=== PATIENT | female | born 1965 | race Caucasian/White ===

== ENCOUNTER 2019-04-16 17:20 | Emergency (ER) | payer SELFPAY ==
--- OUTSIDE RECORDS SUMMARY | 2019-04-16 17:33 | XMS REPORT | Summary of Care ---
:1965 Author Organization [facility] Address [address] [address] Care Team Providers Name Role Phone Martha Avila MD Primary Care Provider Reason for Visit Reason Comments Follow Up Hypothyroidism post albation. Hx of Graves Encounter Details Date Type Department Care Team Description 04/11/2019 Office Visit Nena Moore Postablative hypothyroidism (Primary Dx); Endocrinology-MARTA Kelly Graves disease; [place] [address] Myalgia; [address] [place] [address] Hypovitaminosis D [place] [address] [phone] Allergies Active Allergy Reactions Severity Noted Date Comments Chocolate Swelling 04/11/2019 Swelling of the mouth with open sores Latex Dermatologic Reaction Medium 04/11/2019 Peanuts Dermatologic Reaction 08/13/2015 Pruritis - only with peanut butter (peanuts are ok) Penicillins Anaphylaxis 08/13/2015 Shellfish Allergy Dermatologic Reaction 08/13/2015 Pruritis and anxiety documented as of this encounter (statuses as of 04/11/2019) Medications Medication Sig Dispensed Refills Start Date End Date Status Miconazole Nitrate by Apply 0 Active (LOTRIMIN AF) 2 % Apply externally route. externally Aerosol Lactobacillus Take by mouth 0 Active Rhamnosus, GG, DAILY. (CULTURELLE PO) cyanocobalamin 500 MCG Take 500 mcg by 0 Active Oral Tab mouth DAILY. Tetrahydrozoline HCl Place to the 0 Active (VISINE) 0.05 % external eye Ophthalmic Solution TWICE DAILY. Aloe-Sodium Chloride [place] in nose 0 Active (AYR SALINE NASAL GEL NEEDED. NA) Multiple Vitamin Take by mouth 0 Active (MULTI-VITAMIN DAILY) DAILY. Oral Tab Calcium Carbonate-Vit Take by mouth. 0 Active D-Min (CALCIUM 600+D PLUS MINERALS PO) meloxicam (MOBIC) 15 MG Take 1 Tab by 30 Tab 1 06/11/2018 Active Oral Tab mouth DAILY. cyclobenzaprine Take 2 Tabs by 20 Tab 0 06/11/2018 Active (FLEXERIL) 5 MG Oral mouth EVERY Tab BEDTIME NEEDED (back spasm). diclofenac (VOLTAREN) 1 2 g by Topical 100 g 2 08/01/2018 Active % Transdermal Gel route FOUR TIMES DAILY. ondansetron (ZOFRAN Take 1 Tab by 30 Tab 0 02/18/2019 Active ODT) 4 MG Oral TABLET mouth EVERY SIX DISPERSIBLEIndications: HOURS NEEDED Viral gastroenteritis (Nausea). TIROSINT 100 MCG Oral Take 1 Cap by 30 Cap 5 03/11/2019 Active CapIndications: mouth DAILY 0700 Postablative on Empty Stomach. hypothyroidism 30 min before breakfast Selenium 200 MCG Oral Take 1 Tab by 0 Active Tab mouth DAILY. documented as of this encounter (statuses as of 04/11/2019) Active Problems Problem Noted Date Chronic bilateral low back pain with bilateral sciatica 07/06/2018 Greater trochanteric bursitis of both hips 07/06/2018 Primary osteoarthritis involving multiple joints 07/06/2018 DDD (degenerative disc disease), cervical 06/18/2018 Positive YAS (antinuclear antibody) 03/22/2018 Presence of anti-[place] DNA antibodies 03/22/2018 Keratitis sicca, bilateral 04/05/2017 Tobacco use 11/23/2016 History of gastritis 06/24/2016 Graves disease 08/13/2015 Postablative hypothyroidism 08/13/2015 Overview: 2004 Thyroid disease documented as of this encounter (statuses as of 04/11/2019) Resolved Problems Problem Noted Date Resolved Date Epicondylitis, lateral 07/06/2018 08/01/2018 Palpitations 11/14/2016 08/01/2018 Chest pressure 11/14/2016 08/01/2018 Gastroesophageal reflux disease without esophagitis 06/24/2016 06/24/2016 documented as of this encounter (statuses as of 04/11/2019) Social History Tobacco Use Types Packs/Day Years Used Date Former Smoker Cigarettes 0.5 20 Quit: 08/18/2018 Smokeless Tobacco: Never Used Alcohol Use Drinks/Week oz/Week Comments No Social Isolation Answer Date Recorded In a typical week, how many times do you talk on the phone Not asked with family, friends, or neighbors? How often do you get together with friends or relatives? Not asked How often do you attend jainism or caodaism services? Not asked Do you belong to any clubs or organizations such as jainism Not asked groups, unions, fraternal or athletic groups, or school groups? How often do you attend meetings of the clubs or Not asked organizations you belong to? Are you now , , , , never 06/13/2018 or living with a partner? Sex Assigned at Date Recorded Not on file documented as of this encounter Last Filed Vital Signs Vital Sign Reading Time Taken Comments Blood Pressure 110/76 04/11/2019 9:32 AM EST Pulse 72 04/11/2019 9:32 AM EST Temperature - - Respiratory Rate - - Oxygen Saturation 98% 04/11/2019 9:32 AM EST Inhaled Oxygen Concentration - - Weight 76.2 kg (168 lb) 04/11/2019 9:32 AM EST Height - - Body Mass Index 27.96 02/18/2019 10:46 AM EST documented in this encounter Patient Instructions Patient InstructionsNena Singleton CRNP - 04/11/2019 9:30 AM ESTFasting labs 8 am Continue Tirosint FOLLOW UP 6 mosElectronically signed by Nena Singleton CRNP at 2019 10:12 AM EST documented in this encounter Progress Notes Nena Singleton CRNP - 04/11/2019 9:30 AM EST PATIENT: Janene Morris : 1965 DATE OF SERVICE: 04/11/2019 REFERRING PROVIDER: Nena Singleton PRIMARY CARE PROVIDER: Martha Avila CHIEF COMPLAINT: Chief Complaint Patient presents with ? Follow Up ? Hypothyroidism post albation. Hx of Graves HISTORY OF PRESENT ILLNESS: Janene Morris is a 53-y.o. female who presents for FOLLOW UP of postablative hypothyroidism r/t Graves' disease (dx 2004) S/P I-131 PEREZ ablation in 2004 at [facility]. Currently managed on Tirosint 100 mcg daily. Recent thyroid function tests are normal with TSH 1.84 and Free T4 of 1.3. Main complaints today are chronic fatigue, lower extremity pain - thigh pain, lower leg pain, and joint pain. + YAS titer and was evaluated by Rheumatology. Hx GERD. Current allergies , medications and history have been reviewed. History was obtained from the patient who appears to be reliable. Complaints of: Constipation and diarrhea: no Heat or cold intolerance: Feels warm often Palpitations and tremors: noUnintentional weight loss or weight gain: reports 10 lb wt gain in past 6 mos Changes in skin, hair, or nails: dry itchy skin Fatigue: +++ Dry, gritty sensation in eyes: + dry eyes. Uses eye gtts. Denies blurred or double vision LMP: has no monthly menses while on IUD Menses: Has 3rd consecutive Mirena IUD in place Mood changes: no Smoking: quit smoking in July 2018 Supplements: Selenium, B12, One a day MVI Other: reports dizziness with position change Family history of thyroid cancer: No Radiation exposure to head or neck: No Growth in neck size, lumps, bumps: No Dysphagia/dysphonia/dyspnea: no CURRENT MEDICATIONS Current Outpatient Medications: ? Aloe-Sodium Chloride (AYR SALINE NASAL GEL NA), [place] in nose NEEDED., Disp: , Rfl: ? Calcium Carbonate-Vit D-Min (CALCIUM 600+D PLUS MINERALS PO), Take by mouth., Disp: , Rfl: ? cyanocobalamin 500 MCG Oral Tab, Take 500 mcg by mouth DAILY., Disp: , Rfl: ? cyclobenzaprine (FLEXERIL) 5 MG Oral Tab, Take 2 Tabs by mouth EVERY BEDTIME NEEDED (back spasm)., Disp: 20 Tab, Rfl: 0 ? diclofenac (VOLTAREN) 1 % Transdermal Gel, 2 g by Topical route FOUR TIMES DAILY., Disp: 100 g, Rfl: 2 ? Lactobacillus Rhamnosus, GG, (CULTURELLE PO), Take by mouth DAILY., Disp: , Rfl: ? meloxicam (MOBIC) 15 MG Oral Tab, Take 1 Tab by mouth DAILY., Disp: 30 Tab, Rfl: 1 ? Miconazole Nitrate (LOTRIMIN AF) 2 % Apply externally Aerosol, by Apply externally route., Disp: , Rfl: ? Multiple Vitamin (MULTI-VITAMIN DAILY) Oral Tab, Take by mouth DAILY. , Disp: , Rfl: ? ondansetron (ZOFRAN ODT) 4 MG Oral TABLET DISPERSIBLE, Take 1 Tab by mouth EVERY SIX HOURS NEEDED (Nausea)., Disp: 30 Tab, Rfl: 0 ? Selenium 200 MCG Oral Tab, Take 1 Tab by mouth DAILY., Disp: , Rfl: ? Tetrahydrozoline HCl (VISINE) 0.05 % Ophthalmic Solution, Place to the external eye TWICE DAILY., Disp: , Rfl: ? TIROSINT 100 MCG Oral Cap, Take 1 Cap by mouth DAILY 0700 on Empty Stomach. 30 min before breakfast, Disp: 30 Cap, Rfl: 5 ALLERGIES Allergies Allergen Reactions ? Latex Dermatologic Reaction ? Chocolate Swelling Swelling of the mouth with open sores ? Peanut Butter [Peanuts] Dermatologic Reaction Pruritis - only with peanut butter (peanuts are ok) ? Penicillins Anaphylaxis ? Shellfish Allergy Dermatologic Reaction Pruritis and anxiety PAST MEDICAL HISTORY Graves' disease 2004 Postablative hypothyroidism 2004 PAST SURGICAL HISTORY Cholecystectomy 1999 FAMILY HISTORY SOCIAL HISTORY Social History Social History Main Topics ? Smoking status: Current Every Day Smoker Packs/day: 1.00 Years: 20.00 Types: Cigarettes ? Smokeless tobacco: None ? Alcohol use No ? Drug use: No ? Sexual activity: Not Asked Other Topics Concern ? None Social History Narrative ? Works second shift REVIEW OF SYSTEMS: A comprehensive review of systems was negative except for as noted in the history of present illness/subjective. PHYSICAL EXAM: BP 110/76 (BP Location: Right arm, Patient Position: Sitting) Pulse 72 Wt 168 lb (76.2 kg) SpO2 98% BMI 27.96 kg/m2 GENERAL: Appears well, in NAD SKIN: Warm, well perfused, non-diaphoretic EYES: EOMI bilaterally, peripheral medrano full to confrontation. Right eye appears prominent NECK: thyroid palpable with no nodules or masses, + bruit LYMPH: No palpable LAD in the supraclavicular, submandibular, submental, anterior cervical, posterior cervical, supraclavicular, or occipital chains LUNGS: clear to auscultation bilaterally. HEART: regular rhythm. ABDOMEN: soft, nontender. EXTREMITIES: No cyanosis, or edema, + clubbing of fingernails bilat. NEUROLOGICAL: +2 DTRs diffusely B, no briskness or delayed relaxation. No tremor with outstretched hand. Gait appears stiff and slow. LAB RESULTS: Results for MAKSIM JANENE L ( ) as of 04/11/2019 09:51 Ref. Range 03/12/2019 11:23 TSH Latest Ref Range: 0.47 - 4.68 uIu/ml 1.84 Free T4 Latest Ref Range: 0.8 - 2.2 NG/DL 1.3 ASSESSMENT/PLAN: 1. Postablative hypothyroidism - s/p I-131 PEREZ in 2004 ([facility]). Clinically reports fatigue, muscle pain in legs, and intermittent joint pain. Thyroid function tests are wnL. Managed on Tirosint 100 mcg. No changes. Labs 1 week before next visit. 2. Graves' disease - diagnosed in 2004. Denies vision change. Takes Selenium 200 mcg daily. Advised to FOLLOW UP with Ophthalmology annually and as needed for acute vision changes or eye complaints. Smoking cessation is strongly advised. 3. Myalgia - reports symmetric pain to bilateral thighs and deep aching pain to bilateral shins. Evaluate ESR, CRP, CK level, ACTH, Cortisol, CMP, Vit D, CBC 4. Hypovitaminosis D - check D level and make recommendations Patient agrees with plan of care Will write with results Follow up 6 months MARTA Galaviz 04/11/2019 09:51 Section of Endocrinology Electronically signed. documented in this encounter Plan of Treatment Date Type Specialty Care Team Description 05/20/2019 Office Visit Family Practice Alonso Peraza DO [address] [id number] 06/17/2019 Office Visit Family Practice Martha Avila MD [address] [address] 10/11/2019 Office Visit Endocrinology Nena Singleton CRNP [address] [facility] [place] [address] Name Type Priority Associated Diagnoses Order Schedule VITAMIN D 25 HYDROXY Lab Routine Hypovitaminosis D Expected: (DARIEL) 04/11/2019 (Approximate), Expires: 04/11/2020 FREE T4 Lab Routine Postablative Every 6 Months for hypothyroidism 2 Occurrences starting 04/11/2019 until 04/11/2020 THYROID STIMULATING HORMONE Lab Routine Postablative Every 6 Months for hypothyroidism 2 Occurrences starting 04/11/2019 until 04/11/2020 ADRENOCORTICOTROPIC HORMONE Lab Routine Myalgia Expected: 04/11/2019 (Approximate), Expires: 04/11/2020 CORTISOL AM SERUM Lab Routine Myalgia Expected: 04/11/2019 (Approximate), Expires: 04/11/2020 C-REACTIVE PROTEIN Lab Routine Myalgia Expected: 04/11/2019 (Approximate), Expires: 04/11/2020 SEDIMENTATION RATE Lab Routine Myalgia Expected: 04/11/2019 (Approximate), Expires: 04/11/2020 COMPREHENSIVE METABOLIC Lab Routine Myalgia Expected: PANEL 04/11/2019 (Approximate), Expires: 10/08/2019 URINALYSIS (LAB) WITH REFLEX Lab Routine Myalgia Expected: CULTURE 04/11/2019 (Approximate), Expires: 10/08/2019 CBC WITH DIFFERENTIAL Lab Routine Myalgia Expected: 04/11/2019 (Approximate), Expires: 10/08/2019 CREATINE KINASE Lab Routine Myalgia Expected: 04/11/2019 (Approximate), Expires: 04/11/2020 Health Maintenance Due Date Last Done Comments DTaP/Tdap/Td Vaccines (1 - 1976 Tdap) ZOSTER IMMUNIZATION SERIES 10/15/2015 (1 of 2) MAMMOGRAM (SCREENING) 12/14/2018 12/14/2017 DIABETES SCREENING 02/19/2020 02/18/2019, 02/18/2019, 10/08/2018, Additional history exists LIPID DISORDER SCREENING 06/24/2021 06/24/2016 PAP SMEAR 10/31/2021 10/31/2018 DEPRESSION SCREENING 02/18/2022 03/13/2018 Postponed from 03/13/2019 (Other) Colonoscopy 07/15/2024 07/15/2014 HEPATITIS A IMMUNIZATION Aged Out No longer eligible SERIES based on patient's age to complete this topic HPV IMMUNIZATION SERIES Aged Out No longer eligible based on patient's age to complete this topic MENINGOCOCCAL VACCINE IMM Aged Out No longer eligible based on patient's age to complete this topic PNEUMOCOCCAL 0-64 YRS Aged Out No longer eligible based on patient's age to complete this topic documented as of this encounter Results Not on filedocumented in this encounter Visit Diagnoses Diagnosis Postablative hypothyroidism Other postablative hypothyroidism Graves disease Toxic diffuse goiter without mention of thyrotoxic crisis or storm Myalgia Mylagia and myositis, unspecified Hypovitaminosis D Unspecified vitamin D deficiency documented in this encounter Insurance Payer Benefit Plan / Subscriber ID Effective Dates Phone Address Type Group [employer] COMMERCIAL [facility] [id number] 2010-Present [employer] documented as of this encounter
--- OUTSIDE RECORDS SUMMARY | 2019-04-16 17:33 | XMS REPORT | Summary of Care ---
:1965 Author Organization [facility] Address [address] [place] [address] Care Team Providers Name Role Phone Martha Avila MD Primary Care Provider Reason for Visit Reason Comments Nausea Headache Encounter Details Date Type Department Care Team Description 02/18/2019 Office Visit [facility] Alonso Peraza DO Functional diarrhea (Primary Dx); [address] Psychogenic vomiting with nausea; [address] [id number] [place] [address] Abdominal discomfort, generalized; [phone] Nausea Allergies Active Allergy Reactions Severity Noted Date Comments Peanuts Dermatologic Reaction 08/13/2015 Pruritis - only with peanut butter (peanuts are ok) Penicillins Anaphylaxis 08/13/2015 Shellfish Allergy Dermatologic Reaction 08/13/2015 Pruritis and anxiety documented as of this encounter (statuses as of 02/18/2019) Medications Medication Sig Dispensed Refills Start Date [...] eye Ophthalmic Solution TWICE DAILY. Aloe-Sodium Chloride [place] in nose 0 Active (AYR SALINE NASAL [...] % Transdermal Gel route FOUR TIMES DAILY. TIROSINT 100 MCG Oral Take 1 Cap by 30 Cap 5 10/03/2018 Active Cap mouth DAILY 0700 on Empty Stomach. 30 min before breakfast ondansetron (ZOFRAN Take 1 Tab by 30 Tab 0 02/18/2019 Active ODT) 4 MG Oral TABLET mouth EVERY SIX DISPERSIBLEIndications: HOURS NEEDED Nausea (Nausea). documented as of this encounter (statuses as of 02/18/2019) Active Problems Problem Noted Date Chronic bilateral low back pain with bilateral sciatica 07/06/2018 Greater trochanteric bursitis of both hips 07/06/2018 Primary osteoarthritis involving multiple joints 07/06/2018 DDD (degenerative disc disease), cervical 06/18/2018 Positive YAS (antinuclear antibody) 03/22/2018 Presence of anti-pala DNA antibodies 03/22/2018 Keratitis sicca, bilateral 04/05/2017 Tobacco use 11/23/2016 History of gastritis 06/24/2016 Graves disease 08/13/2015 Postablative hypothyroidism 08/13/2015 Overview: 2004 Thyroid disease documented as of this encounter (statuses as of 02/18/2019) Resolved Problems Problem Noted Date Resolved Date Epicondylitis, lateral 07/06/2018 08/01/2018 Palpitations 11/14/2016 08/01/2018 Chest pressure 11/14/2016 08/01/2018 Gastroesophageal reflux disease without esophagitis 06/24/2016 06/24/2016 documented as of this encounter (statuses as of 02/18/2019) Social History Tobacco Use Types Packs/Day Years Used Date Former Smoker Cigarettes 0.5 20 Quit: 03/04/2017 Smokeless Tobacco: Never Used Alcohol Use Drinks/Week oz/Week Comments No Social Isolation Answer Date Recorded In a typical week, how many times do you talk on the phone Not asked with family, friends, or neighbors? How often do you get together with friends or relatives? Not asked How often do you attend yazdanism or worship services? Not asked Do you belong to any clubs or organizations such as yazdanism Not asked groups, unions, fraternal or athletic groups, or school groups? How often do you attend meetings of the clubs or Not asked organizations you belong to? Are you now , , , , never 06/13/2018 or living with a partner? Sex Assigned at Date Recorded Not on file Job Start Date Occupation Industry Not on file Not on file Not on file Travel History Travel Start Travel End No recent travel history available. documented as of this encounter Last Filed Vital Signs Vital Sign Reading Time Taken Comments Blood Pressure 126/84 02/18/2019 10:46 AM EST Pulse 86 02/18/2019 10:46 AM EST Temperature 37.4 02/18/2019 10:46 AM EST C (99.3 F) Respiratory Rate 16 02/18/2019 10:46 AM EST Oxygen Saturation 97% 02/18/2019 10:46 AM EST Inhaled Oxygen Concentration - - Weight 74.8 kg (165 lb) 02/18/2019 10:46 AM EST Height 165.1 cm (5' 5") 02/18/2019 10:46 AM EST Body Mass Index 27.46 02/18/2019 10:46 AM EST documented in this encounter Patient Instructions Patient InstructionsChaAlonso peters DO - 02/18/2019 10:40 AM ESTSTART using Zofran for nausea control every 6 hours as needed I will inform you of your viral swab results Please complete blood work FOLLOW UP in 2 weeks for another evaluation documented in this encounter Plan of Treatment Date Type Specialty Care Team Description 02/27/2019 Office Visit conference interpreter Jose Vital MD [address] [address] 03/22/2019 Office Visit Family Practice Alonso Peraza DO [address] [address] 04/11/2019 Office Visit Endocrinology Nena Singleton CRNP [address] [place] [address] Health Maintenance Due Date Last Done Comments DTaP/Tdap/Td Vaccines (1 - 1976 Tdap) ZOSTER IMMUNIZATION SERIES 10/15/2015 (1 of 2) MAMMOGRAM (SCREENING) 12/14/2018 12/14/2017 DIABETES SCREENING 10/09/2019 10/08/2018, 01/15/2018, 07/03/2017, Additional history exists LIPID DISORDER SCREENING 06/24/2021 [...] this topic documented as of this encounter Procedures Procedure Name Priority Date/Time Associated Diagnosis Comments FLU A/FLU B/RSV PCR Routine 02/18/2019 10:57 AM Functional diarrhea Results for this ASSAY (TESTED AT EST procedure are in [facility] ONLY) the results section. documented in this encounter Results COMPREHENSIVE METABOLIC PANEL (02/18/2019 11:36 AM EST) Sodium 139 134 - 145 mmol/L [facility] Potassium 4.4 3.5 - 5.1 mmol/L [facility] Chloride 105 98 - 107 mmol/L [facility] CO2 28 22 - 30 mmol/L [facility] Calcium 9.8 8.3 - 10.1 mg/dl [facility] Albumin 4.4 3.5 - 5.0 g/dl [facility] BUN 11 7 - 17 mg/dl [facility] Creatinine 0.7 0.7 - 1.2 mg/dl [facility] Glucose 101 (H) 70 - 99 mg/dl [facility] Total Protein 8.0 6.3 - 8.2 g/dl [facility] Total Bilirubin 0.7 0.0 - 1.1 MG/DL [facility] AST 30 15 - 46 U/L [facility] ALT 36 9 - 52 U/L [facility] Alkaline 55 40 - 150 U/L [facility] Phosphatase [facility] LAB[facility]ORY eGFR >60 See Interpretation [facility] Comment: Below ml/min/1.73ml GROUP Estimated GFR Interpretation: LABORATORY Above 60ml/min/1.73m2 = Normal Renal Function 30-59 ml/min/1.73m2 = Stage 3 Chronic Kidney Disease 15-29 ml/min/1.73m2 = Stage 4 Chronic Kidney Disease Less than 15 ml/min/1.73m2 = Stage 5 Chronic Kidney Disease The GFR value is calculated using the Modification of Diet in Renal Disease ( MDRD) Study Equation which can be found at: https://www.kidney.org/content/pagy-ejxxo-xqblgimu BUN/Creatinine 16 6 - [address] [facility] LABORATORY Anion Gap 6 3 - 11 mmol/L [facility] A/G Ratio 1.2 0.8 - 2.0 ratio [facility] Specimen Blood - Blood specimen (specimen) Performing Organization Address City/State/Zipcode Phone Number [facility] [address] [place] [address] [phone] CBC WITH DIFFERENTIAL (02/18/2019 11:36 AM EST) WBC Count 3.51 (L) 3.98 - 10.04 K/uL [facility] RBC Count 4.47 3.93 - 5.22 M/UL [facility] Hemoglobin 13.8 11.2 - 15.7 g/dL [facility] Hematocrit 40.6 34.1 - 44.9 % [facility] MCV 90.8 79.4 - 94.8 [facility] MCH 30.9 25.6 - 32.2 PG [facility] MCHC 34.0 32.2 - 35.5 g/dL [facility] Platelet Count 185 182 - 369 K/uL [facility] MPV 9.9 9.4 - 12.3 [facility] RDW 12.2 11.7 - 14.4 % [facility] Neutrophil % 58.1 34.0 - 71.1 % [facility] Lymphocyte % 29.9 19.3 - 51.7 % [facility] Monocyte % 8.5 4.7 - 12.5 % [facility] Eosinophil % 2.6 0.7 - 5.8 % [facility] Basophil % 0.9 0.1 - 1.2 % [facility] nRBC % 0.0 0.0 - 0.2 % [facility] Neutrophil # 2.04 1.56 - 6.13 K/UL [facility] Lymphocyte # 1.05 (L) 1.18 - 3.74 K/UL [facility] Monocyte # 0.30 0.24 - 0.86 K/UL [facility] Eosinophil # 0.09 0.04 - 0.36 K/UL [facility] Basophil # 0.03 0.01 - 0.08 K/UL [facility] Immature Gran % 0.0 0.0 - 0.4 % [facility] Immature Gran # 0.00 0.00 - 0.03 K/uL [facility] NRBC # 0.00 0.00 - 0.12 K/uL [facility] Specimen Blood - Blood specimen (specimen) Performing Organization Address [facility] Cent[facility]ode Phone Number [facility] [address] [place] [address] FLU A/FLU B/RSV PCR ASSAY (TESTED AT [facility] ONLY) (02/18/2019 10:57 AM EST) Influenza A PCR Assay Negative Negative [facility] Influenza B PCR Assay Negative Negative [facility] RSV PCR Assay Negative Negative [facility] Specimen Nose - Nasopharyngeal swab (specimen) Performing Organization Address [facility]/Zipcode Phone Number [facility] [address] [place] [address] documented in this encounter Visit Diagnoses Diagnosis Psychogenic vomiting with nausea Functional diarrhea Abdominal discomfort, generalized Abdominal pain, generalized Nausea Nausea alone documented in this encounter Insurance Payer Benefit Plan / Subscriber ID Effective Dates Phone Address Type Group C[employer] COMMERCIAL [facility] xxxxxxxxxxx 2010-Present [employer] documented as of this encounter
[2019-04-16 20:12] VITALS: BP 145/77
[2019-04-16] MEDS ORDERED: Tetan/Diph/Pertus SYR(Tdap)* 0.5 ML SYR(BOOSTRIX) use SYR contains LATEX IM ONE (20:24)
--- NOTE | 2019-04-16 20:34 | UC ---
Skin Complaint HPI - HPI Summary HPI Summary: WHILE AT WORK TODAY A THIN METAL POLE SHATTERED INTO MANY LITTLE PIECES AND SPRAYED PATIENTS LEFT SIDE. SHE HAS SOME SUPERFICIAL ABRASIONS AND IS CONCERNED ABOUT RETAINED FOREIGN BODY. LAST TETANUS ABOUT 10 YEARS AGO. - History of Current Complaint Chief Complaint: UCBackPain Time Seen by Provider: 04/16/19 20:08 Stated Complaint: FLANK INJURY Hx Obtained From: Patient Hx Last Menstrual Period: IUD Onset/Duration: Sudden Onset, Lasting Hours, Still Present Timing: Constant Onset Severity: Mild Current Severity: Mild Pain Intensity: 2 Pain Scale Used: 0-10 Numeric Location: Discrete - LEFT SIDE Aggravating Factor(s): Touch Alleviating Factor(s): Nothing Associated Signs & Symptoms: Positive: Tenderness - Allergy/Home Medications Allergies/Adverse Reactions: Allergies Allergy/AdvReac Type Severity Reaction Status Date / Time Penicillins Allergy Altered Verified 04/16/19 17:56 Mental Status Home Medications: Home Medications Levothyroxine Sodium [Tirosint] 175 mcg PO DAILY 04/16/19 [History Confirmed ] PMH/Surg Hx/FS Hx/Imm Hx Endocrine History: Hypothyroidism - Surgical History Surgical History: Yes Surgery Procedure, Year, and Place: gallbladder - Family History Known Family History: Positive: Non-Contributory - Social History Alcohol Use: Rare Substance Use Type: None Smoking Status (MU): Former Smoker When Did the Patient Quit Smoking/Using Tobacco: 7 months ago Review of Systems All Other Systems Reviewed And Are Negative: Yes Constitutional: Positive: Negative Skin: Positive: Other - ABRASIONS Respiratory: Positive: Negative Cardiovascular: Positive: Negative Gastrointestinal: Positive: Negative Physical Exam Triage Information Reviewed: Yes Appearance: Well-Appearing, No Pain Distress, Well-Nourished Vital Signs: Initial Vital Signs Temp 100.4 F 04/16/19 17:49 Pulse 76 04/16/19 17:49 Resp 16 04/16/19 17:49 BP 140/76 04/16/19 17:49 Pulse Ox 97 04/16/19 17:49 Laboratory Tests 04/16/19 19:19 POC Urine Color Light yellow POC Urine Clarity Clear POC Urine pH 7.0 POC Ur Specif [place] 1.010 POC Urine Protein Negative POC Ur Glucose (UA) Negative POC Urine Ketones Negative POC Urine Blood Negative POC Urine Nitrite Negative POC Urine Bilirubin Negative POC Urine Urobilinogen 0.2 POC U Leukocyte Esteras 3+ A Vital Signs Reviewed: Yes Eyes: Positive: Conjunctiva Clear ENT: Positive: Hearing grossly normal Neck: Positive: Supple Respiratory: Positive: No respiratory distress, No accessory muscle use Cardiovascular: Positive: Pulses Normal Abdomen Description: Positive: Soft Musculoskeletal: Positive: No Edema Neurological: Positive: Alert Psychological: Positive: Age Appropriate Behavior Skin: Positive: Other - <1CM SPFL ABRASION LEFT SIDE MIDAXILLARY LINE - TENDER. 1CM ECCHYMOSIS LEFT SIDE MIDAXILLARY LINE - TENDER. Diagnostics - Radiology LEFT RIB XRAYS Radiology Interpretation Completed By: ED Physician Summary of Radiographic Findings: NO LEFT SIDED FB. QUESTIONABLE FB RLQ. SURGICAL CLIPS RUQ. Course/Dx - Course Course Of Treatment: URINALYSIS OBTAINED DUE TO CONCERN FOR INJURY TO THE KIDNEY BASED ON PATIENT'S INITIAL DESCRIPTION OF BEING STRUCK BY A METAL POLE. UPON FURTHER QUESTIONING IT WAS DISCOVERED THAT THE METAL POLE SHATTERED INTO "HUNDREDS OF LITTLE PIECES "AND PATIENT WAS MORE CONCERNED ABOUT RETAINED FOREIGN BODY. [facility] DID NOT REVEAL ANY FOREIGN BODIES IN THE AREA OF QUESTION ON MY INITIAL INTERPRETATION. OFFICIAL RADIOLOGY READ IS PENDING. SHE DOES HAVE SURGICAL CLIPS IN THE RIGHT UPPER QUADRANT WHICH IS CONSISTENT WITH HER HISTORY OF CHOLECYSTECTOMY HOWEVER THERE IS A LINEAR OPACITY IN THE RIGHT LOWER QUADRANT. ADVISED HER TO FOLLOW THIS UP WITH HER PCP. AGAIN OFFICIAL RADIOLOGY READ IS PENDING. TDAP BOOSTED. URINE SENT FOR CULTURE. PT IS ASYMPTOMATIC. WILL TREAT IF NEEDED BASED ON CULTURE RESULTS. - Diagnoses Provider Diagnosis: Abrasion of left side of back, Need for tetanus booster Discharge ED - Sign-Out/Discharge Documenting (check all that apply): Patient Departure All imaging exams completed and their final reports reviewed: No - Discharge Plan Condition: Stable Disposition: HOME Patient Education Materials: Abrasion (ED) Referrals: Martha Avila MD [Primary Care Provider] - If Needed Additional Instructions: NO RETAINED FOREIGN BODY SEEN IN THE AREA IN QUESTION ON X-RAY TODAY ON MY INITIAL INTERPRETATION. WE WILL CALL YOU TOMORROW IF THE RADIOLOGY READ IS DIFFERENT. TDAP BOOSTED TODAY. COVER YOUR ABRASIONS WITH ANTIBIOTIC OINTMENT AND A BAND-AID. THEY WILL HEAL WITH TIME. SEEK FOLLOW-UP IF YOU DEVELOP SPREADING REDNESS OF THE SKIN, PURULENT DRAINAGE, FEVER, INCREASED PAIN OR ANY OTHER CONCERNING SYMPTOMS. INCIDENTALLY THERE APPEARS TO BE A LINEAR FOREIGN BODY IN YOUR RIGHT PELVIS. THIS IS UNRELATED TO YOUR CURRENT COMPLAINT HOWEVER I RECOMMEND YOU FOLLOW THIS UP WITH YOUR PRIMARY CARE PROVIDER. AGAIN RADIOLOGY WILL LOOK AT THE FILMS IN THE MORNING AND HOPEFULLY OFFER FURTHER CHARACTERIZATION OF THIS FINDING. - Billing Disposition and Condition Condition: STABLE Disposition: Home
--- NOTE | 2019-04-17 08:21 | UC ---
- Progress Note Progress Note: RADIOLOGY REPORT REVIEWED. NO RADIOPAQUE FOREIGN BODY IDENTIFIED. LINEAR OPACITY IN THE RIGHT LOWER QUADRANT CHARACTERIZED ANOTHER SURGICAL CLIP. PT CALLED. LEFT MESSAGE TO CALL BACK. Course/Dx - Diagnoses Provider Diagnoses: Abrasion of left side of back, Need for tetanus booster Discharge ED - Sign-Out/Discharge Documenting (check all that apply): Post-Discharge Follow Up All imaging exams completed and their final reports reviewed: Yes - Discharge Plan Condition: Stable Disposition: HOME Patient Education Materials: Abrasion (ED) Referrals: Martha Avila MD [Primary Care Provider] - If Needed Additional Instructions: NO RETAINED FOREIGN BODY SEEN IN THE AREA IN QUESTION ON X-RAY TODAY ON MY INITIAL INTERPRETATION. WE WILL CALL YOU TOMORROW IF THE RADIOLOGY READ IS DIFFERENT. TDAP BOOSTED TODAY. COVER YOUR ABRASIONS WITH ANTIBIOTIC OINTMENT AND A BAND-AID. THEY WILL HEAL WITH TIME. SEEK FOLLOW-UP IF YOU DEVELOP SPREADING REDNESS OF THE SKIN, PURULENT DRAINAGE, FEVER, INCREASED PAIN OR ANY OTHER CONCERNING SYMPTOMS. INCIDENTALLY THERE APPEARS TO BE A LINEAR FOREIGN BODY IN YOUR RIGHT PELVIS. THIS IS UNRELATED TO YOUR CURRENT COMPLAINT HOWEVER I RECOMMEND YOU FOLLOW THIS UP WITH YOUR PRIMARY CARE PROVIDER. AGAIN RADIOLOGY WILL LOOK AT THE FILMS IN THE MORNING AND HOPEFULLY OFFER FURTHER CHARACTERIZATION OF THIS FINDING. - Billing Disposition and Condition Condition: STABLE Disposition: Home
== END 2019-04-16 21:00 | disposition home or self-care (01) ==
LOC: UCEAST 17:20
DX: S30.810A Abrasion of lower back and pelvis, initial encounter (principal); Z23 Encounter for immunization; E03.9 Hypothyroidism, unspecified; X58.XXXA Exposure to other specified factors, initial encounter; Y92.9 Unspecified place or not applicable; Y99.0 Civilian activity done for income or pay; Z88.0 Allergy status to penicillin; Z79.890 Hormone replacement therapy; Z87.891 Personal history of nicotine dependence
CPT/HCPCS: 81003; 87086; 90471; 90715; 99201; G0463